=== PATIENT | female | born 1985 | race Caucasian/White ===

== ENCOUNTER 2023-07-09 20:02 | Inpatient (IN) | payer BC ==
[~2023-07-09] VITALS: Ht 162.6 cm; Wt 97.5 kg
[2023-07-09 19:50] VITALS: BP 138/69; PULSE 74; RESP 20; TEMP 98.6
[2023-07-09 20:34] LABS: HEMATOCRIT 37.5 % (36-48); MEAN CORPUSCULAR HEMOGLOBIN 32 pg (27-31); MEAN CORPUSCULAR HGB CONC 35 g/dL (33-37); MEAN CORPUSCULAR VOLUME 92.7 fL (80-94); PLATELET COUNT (AUTO) 194 K/uL (140-450); RED BLOOD CELL COUNT(AUTO) 4.04 MIL/uL (4.20-5.40); RED CELL DISTRIBUTION WIDTH 12.8 % (11.6-13.7)
[2023-07-09] MEDS ORDERED: METHYLERGONOVINE 0.2 MG/ML AMP IM PRN (20:55)
[2023-07-09] MEDS ORDERED: ROPIVACAINE 0.2%/NS PREMIX 200 ML EPI SCH (20:55)
[2023-07-09 20:58] LABS: WHITE BLOOD COUNT (AUTO) 25.6 K/uL (4.8-10.8)
[2023-07-09 21:03] LABS: ALBUMIN 2.7 g/dL (3.4-5.0); CALCIUM 9.2 mg/dL (8.5-10.1); CARBON DIOXIDE 19.9 mmol/L (21-32); CREATININE 1.2 mg/dL (0.6-1.3); POTASSIUM 3.9 mmol/L (3.5-5.1); TOTAL BILIRUBIN 0.6 mg/dL (0.0-1.0); TOTAL PROTEIN, SERUM 7.7 g/dL (6.4-8.2)
[2023-07-09] MEDS: LACTATED RINGERS 1,000 ML IV SCH (21:09)
[2023-07-09] MEDS ORDERED: CLINDAMYCIN 900 MG/6 ML VIAL IV ONE (21:18)
[2023-07-09] MEDS: CLINDAMYCIN 900 MG in DEXTROSE 5% 100 ML IV SCH (21:29)
[2023-07-09 21:36] LABS: BASOPHILS % (MANUAL) 0 % (0-2); EOSINOPHILS % (MANUAL) 0 % (0-4); LYMPHOCYTES % (MANUAL) 5 % (20-46); MONOCYTES % (MANUAL) 3 % (5-12); MYELOCYTES % 1 % (0-0); PLATELET ESTIMATE ADEQUATE
[2023-07-09 22:38] LABS: APPEARANCE,URINE CLEAR (CLEAR); BILIRUBIN,URINE NEGATIVE (NEGATIVE); BLOOD, URINE 3+ (NEGATIVE); COLOR,URINE YELLOW (YELLOW); LEUKOCYTE ESTERASE ,URINE NEGATIVE (NEGATIVE); NITRITE, URINE NEGATIVE (NEGATIVE); PROTEIN,URINE 2+ (NEGATIVE); UGLUCOSE NEGATIVE (NEGATIVE); UROBILINOGEN,URINE 0.2 EU/dL (0.2 - 1)
[2023-07-09] MEDS: OXYTOCIN 20 UNITS in LACTATED RINGERS 1,000 ML IV SCH (22:47)
[2023-07-09 23:05] LABS: BACTERIA,URINE 2+ /HPF (None Seen); RBC,URINE 20-50 /HPF (0-5); WBC,URINE 0-5 /HPF (0-5)
[2023-07-09 23:07] LABS: FINE GRANULAR CASTS,URINE 0-1 /LPF (None Seen); MUCUS,URINE 1+ /LPF (None Seen); SQUAMOUS EPITHELIAL CELL,UR 0-3 (FEW) /LPF (0-3 (FEW))
[2023-07-10] MEDS ORDERED: PREN-537 PO (02:38)
[2023-07-10] MEDS ORDERED: CLINDAMYCIN 900 MG/6 ML VIAL IV ONE (05:15)
[2023-07-10] MEDS ORDERED: fentaNYL citrate 0.05 MG/ML VIAL ONE (07:34)
[2023-07-10] MEDS ORDERED: MORPHINE PRES FREE 5 MG/10 ML AMP IV ONE (07:34)
[2023-07-10] MEDS ORDERED: LIDOCAINE/EPI MPF 2%1:200000 10 ML VIAL INJ ONE (07:34)
[2023-07-10] MEDS ORDERED: OXYTOCIN 10 UNITS/ML VIAL ONE (08:03)
[2023-07-10] MEDS: OXYTOCIN 20 UNITS/LR PREMIX 1,000 ML IV ONE ×2 (08:50→09:12)
[2023-07-10] MEDS ORDERED: METHYLERGONOVINE 0.2 MG/ML AMP IM PRN (12:55)
[2023-07-10] MEDS ORDERED: MEASLES, MUMPS, AND RUBELLA 1 VIAL SQVAC ONE (12:55)
[2023-07-10] MEDS: OXYTOCIN 20 UNITS in LACTATED RINGERS 1,000 ML IV SCH (14:41)
[2023-07-10] MEDS: KETOROLAC 30 MG/ML VIAL IVP PRN (16:36)
[2023-07-10] MEDS ORDERED: OXYTOCIN 20 UNITS/LR PREMIX 1,000 ML IV ONE (21:59)
[2023-07-11 08:31] LABS: HEMOGLOBIN 11.1 g/dL (12.0-16.0); LYMPHOCYTES # (AUTO) 1.7 K/uL (2.5-16.5)
[2023-07-11 08:51] LABS: BASOPHILS % (AUTO) 0.1 % (0.0-2.0); HEMATOCRIT 31.6 % (36-48); LYMPHOCYTES % (AUTO) 7.3 % (20.5-51.1); MEAN CORPUSCULAR HEMOGLOBIN 33 pg (27-31); MEAN CORPUSCULAR HGB CONC 35 g/dL (33-37); MONOCYTES % (AUTO) 4.5 % (1.7-9.3); NEUTROPHILS # (AUTO) 20.4 K/uL (1.8-7.7); NEUTROPHILS % (AUTO) 88.1 % (42.2-75.2); PLATELET COUNT (AUTO) 164 K/uL (140-450); RED CELL DISTRIBUTION WIDTH 13.3 % (11.6-13.7)
[2023-07-11 09:01] LABS: WHITE BLOOD COUNT (AUTO) 23.1 K/uL (4.8-10.8)
[2023-07-11] MEDS: oxyCODONE/APAP 5/325 MG 1 TAB TAB PO PRN ×2 (10:02→14:43)
[2023-07-11] MEDS: SIMETHICONE 80 MG TAB.CHEW PO PRN (10:02)
[2023-07-11] MEDS: bisacodyL 5 MG TABEC PO PRN (10:02)
[2023-07-11] MEDS: IBUPROFEN 800 MG TAB PO PRN (18:19)
[2023-07-12] MEDS ORDERED: CAMERA MC ONE (02:33)
== END 2023-07-13 15:20 | disposition home or self-care (01) | DRG 788 ==
LOC: MFCC 20:02
PROVIDERS: ADMIT Obstetrics & Gynecology; ATTEND Obstetrics & Gynecology
PROC: 10D00Z1 Extraction of Products of Conception, Low, Open Approach (ICD-10-PCS; principal; 2023-07-12)
DX: O48.0 Post-term pregnancy (principal); O62.2 Other uterine inertia; Z20.822 Contact with and (suspected) exposure to COVID-19; Z3A.41 41 weeks gestation of pregnancy; Z37.0 Single live birth
CPT/HCPCS: 36415; 80053; 81001; 85025; 86592; 86886; 86900; 86901; 87086; J1885; J2001; J2590; J2795; J3010; J3490; J7060; J7120